=== PATIENT | female | born 1995 | race Caucasian/White ===

== ENCOUNTER → 2016-12-24 | Outpatient (CLI) | payer SELFPAY ==
[~2016-12-24] MED LIST: NOMEDS XX; PRENATAL PLUS1 TA1 PO
[2016-12-24 17:07] LABS: LYMPH # 2.1 K/mm3 (0.7-4.5)
[2016-12-24 17:14] LABS: HEMOGLOBIN 13.6 g/dL (12.2-16.2)
[2016-12-24 17:38] LABS: URINE BILIRUBIN - DIPSTICK NEGATIVE (NEG); URINE BLOOD NEGATIVE (NEG)
[2016-12-24 17:56] LABS: BUN 7 mg/dL (7-18)
[2016-12-24 18:10] LABS: GFR (ESTIMATED) 276 ML/MIN (59-)
[2016-12-26 08:37] LABS: Folate (Folic Acid) >20.0 ng/mL (>3.0); Vitamin B12 424 pg/mL (211-946)
== END ==
LOC: LAB 16:52
PROVIDERS: Emergency Medicine
DX: M62.81 Muscle weakness (generalized) (principal)

== ENCOUNTER → 2017-01-31 | Outpatient (CLI) | payer SELFPAY ==
[2017-02-02 14:40] LABS: Anti-DNA (DS) Ab Qn <1 IU/mL (0-9); Anti-Jo-1 <0.2 AI (0.0-0.9); Sjogren's Anti-SS-A <0.2 AI (0.0-0.9)
[2017-02-02 16:37] LABS: Antinuclear Antibodies, IFA Negative (.)
== END ==
LOC: LAB 15:47
PROVIDERS: Emergency Medicine
DX: M33.10 Other dermatomyositis, organ involvement unspecified (principal)

== ENCOUNTER → 2017-03-04 | Outpatient (CLI) | payer SELFPAY | LOC: LAB 17:12 | DX: M60.9 Myositis, unspecified (principal) ==